=== PATIENT | male | born 1950 | race Caucasian/White ===

== ENCOUNTER 2023-12-26 06:57 | Observation (INO) ==
--- NOTE | 2023-11-22 11:45 | PAT Medication Instructions ---
Medication Instructions Date of Service November 22, 2023 Home Medications acetaminophen 650 mg tablet,extended release 650 mg PO Q8H PRN atorvastatin 40 mg tablet 40 mg PO PM levothyroxine 150 mcg tablet 150 mcg PO QAM Take morning of surgery With a small sip of water, OTHERWISE NOTHING TO EAT OR DRINK AFTER MIDNIGHT: acetaminophen 650 mg tablet,extended release 650 mg PO Q8H PRN(if needed) levothyroxine 150 mcg tablet 150 mcg PO QAM Take evening before surgery acetaminophen 650 mg tablet,extended release 650 mg PO Q8H PRN(if needed) atorvastatin 40 mg tablet 40 mg PO PM Other Notes If you have any questions please call us at [phone] or [phone] or [phone] or [phone]
--- NOTE | 2023-11-26 13:13 | Anesthesiology Consultation ---
Date of Service November 26, 2023 Assessment & Plan (1) Encounter for pre-operative examination: Plan - will request copy of upcoming echocardiogram from [facility]. - cardiology office visit 12/13/22: "...abnormal echo from 03/02/21 showed moderate RV dilation and hypokinesis. Repeat echo from 08/17/22 shows EF of 55- 60%, RV systolic function is normal. EKG shows sinus rhythm-will repeat echo in one year..." - facial hair: patient was instructed to trim/shave facial hair. Chart Review Chart Review: Pending: Refer to Additional Notes / Consult section and Patient seen in Pre Admission Testing Teaching & Discussion Pre-Anesthesia Teaching/Discussion Notes: Instructed NPO after midnight before surgery, except medications with 15 cc of water. Medication instructions provided according to the PAT guidelines. History Surgery Operation Date: 12/26/23 08:10 Proposed Procedures p Left Total Knee Arthroplasty - Bassem Bernal DO Height/Weight Height: 6 ft Weight: 100.2 kg Allergies Allergy/AdvReac Type Severity Reaction Status Date / Time No Known Allergies Allergy Unverified 11/22/23 09:07 Medications Home Medications Medication Instructions Recorded Confirmed Last Taken acetaminophen 650 mg 650 mg PO Q8H PRN prn 11/22/23 11/22/23 Unknown tablet,extended release atorvastatin 40 mg tablet 40 mg PO PM 11/22/23 11/22/23 Unknown levothyroxine 150 mcg tablet 150 mcg PO QAM 11/22/23 11/22/23 Unknown Past Medical History Medical History (Updated 11/26/23 @ 13:27 by Janeen Ardon PA-C) Dyspnea on exertion occasionally with flights of stairs, having ECHO 12/06/2023, [facility] History of COVID-19 07/2022, mild symptoms, denies hospitalization, resolved History of TIA (transient ischemic attack) 10 yrs ago-temporary vision loss-denies additional episodes Hyperlipidemia Hypothyroidism Sleep apnea not using his device Patient denies h/o seizures, heart attack, heart failure, DM, HTN, blood clots/DVTs or blood transfusions. Exercise / Class Metabolic Activity II 4-5 Yardwork/Stairs/Walk up hill (SOB with 1 FOS-chronic for several yrs, denies change or worsening; denies chest discomfort) Past Surgical History Surgical History Hx of hernia repair x 3, last one was in the 90s, umbilical and inguinal Hx of tooth extraction Past Anesthesia History No Hx of Anesthesia Complications and No Family Hx of Anesthesia Complications History of PONV No Hx of PONV and No Hx of Motion Sickness Social History Smoking Status: Never smoker Do You Dip or Chew Tobacco: No Hx Alcohol Use: Yes Alcohol type: beer alcohol intake frequency: 3 or more drinks per day (1 30 case per week; denies withdrawal, DTs or seizures) Hx Substance Use: No substance use type: does not use Review of Systems Patient denies chest pain, reflux, fever, chills, cough, wheezing, or palpitations. Physical Exam Vital Signs Vitals BP 131/88 P 54 TEMP 97.6 SP02 97% on RA RESP 18 Physical Patient resting comfortably in chair in no acute distress, alert and oriented, responding appropriately throughout visit Full cervical extension range of motion without pain TMD 3.5 finger breadths Mallampati Score 2 Dentition: chipped front tooth; denies loose teeth, caps/crowns, implants or bridges Lungs: normal respiratory effort. Good air movement, clear throughout to auscultation, no adventitious breath sounds Cardiac: regular rate and rhythm, no murmurs noted Carotid arteries: negative bruit bilat Lab Results Anesthesia Preop Results Results Anesthesia Widget: WBC 7.04 K/ul (4.8-10.8) 11/26/23 Hgb 15.7 g/dl (14.0-18.0) 11/26/23 Hct 45.3 % (42.0-52.0) 11/26/23 Plt 192 K/uL (130-400) 11/26/23 Na 138 mmol/L (136-145) 11/26/23 K 4.1 mmol/L (3.5-5.1) 11/26/23 Cl 108 mmol/L (98-107) H 11/26/23 CO2 24 mmol/L (21-32) 11/26/23 BUN 17 mg/dl (6-23) 11/26/23 Creat 1.03 mg/dl (0.6-1.4) 11/26/23 Glucose Level 110 mg/dl (70-99(Fasting)) H 11/26/23 PT 10.8 Seconds (9.0-12.0) 11/26/23 PTT 26 Seconds (21-31) 11/26/23 INR 1.0 (0.9-1.1) 11/26/23 HA1c 5.5 % (4.5-5.6) 11/26/23 Blood Type A Positive 11/26/23 Antibody Screen NEGATIVE 11/26/23 Testing Electrocardiogram Date: 11/26/23 Sinus bradycardia with 1st degree AV block, rate 50 bpm
--- NOTE | 2023-12-07 10:59 | History & Physical Report ---
Date of Service December 07, 2023 date of surgery: 12/26/23 Procedure: Left Total Knee Arthroplasty Surgeon: Bassem Bernal, DO Assessment & Plan (1) Arthritis of knee, left: Plan: Risk and benefits of this procedure were discussed, he would like to proceed wi th left total knee arthroplasty. Will plan on discharge home with home health physical therapy, we will place him on aspirin 81 mg twice a day for 1 month postop DVT prophylaxis. He otherwise has no other questions or concerns follow- up in the office 2 weeks after surgery The risks and benefits have been discussed including, but not limited to, risk of infection, nerve injury, stiffness, loss of motion, failure to improve, etc. Reasonable outcomes and options of treatment were discussed. An explanation of appropriate alternatives to the procedure that may be advantageous were discussed and their risks and benefits, as well as the risks and benefits of not proceeding with treatment. I offered to answer any additional inquiries concerning the treatment involved. All the patient's questions were answered. The patient is agreeable, understanding of the treatment plan and alternatives, and wishes to proceed with the treatment plan. Please note the above document was generated using voice recognition software. It may contain grammatical, syntax or spelling errors. Any formal questions or concerns about the content, text or information contained within the body of this dictation should be directly addressed to the provider for clarification History of Present Illness Chief Complaint: left knee pain Primary Care Provider: Bassem Baez Drew is a 73-year-old male who presented for preop evaluation prior to upcoming left total knee arthroplasty. He has a longstanding history of left knee pain which gradually worsened and is now affecting his daily activities. Has complaints of pain decreased range of motion and intermittent swelling. He has undergone previous cortisone injection as well as viscosupplementation with no improvement. He has tried oral anti-inflammatories and Tylenol as well. This point time is failed conservative measures and wished to proceed with a left total knee replacement Allergies Allergy/AdvReac Type Severity Reaction Status Date / Time No Known Allergies Allergy Unverified 11/22/23 09:07 Home Medications Medication Instructions Recorded Confirmed Type acetaminophen 650 mg 650 mg PO Q8H PRN prn 11/22/23 11/22/23 History tablet,extended release atorvastatin 40 mg tablet 40 mg PO PM 02/01/24 02/01/24 History levothyroxine 150 mcg tablet 150 mcg PO QAM 11/22/23 11/22/23 History Past Med/Surg History Medical History History of TIA (transient ischemic attack) 10 yrs ago-temporary vision loss-denies additional episodes Dyspnea on exertion occasionally with flights of stairs, having ECHO 12/06/2023, [facility] [place] Hypothyroidism Hyperlipidemia History of COVID-19 07/2022, mild symptoms, denies hospitalization, resolved Sleep apnea not using his device Surgical History Hx of tooth extraction Hx of hernia repair x 3, last one was in the 90s, umbilical and inguinal Social History Smoking Status: Never smoker Second Hand Exposure: No; Do You Dip or Chew Tobacco: No; Hx Alcohol Use: Yes Alcohol type: beer Hx Substance Use: No Preferred Language: [place] Certified Scrum Master Required: No Beliefs That Will Affect Care: None Current Living Situation: Spouse Feels Safe at Home: Yes Assistive Devices: Glasses Review of Systems Review of Systems: All systems reviewed & are unremarkable except as noted in HPI & below Constitutional: no fever, no chills and no sweats Respiratory: no cough and no dyspnea Cardiovascular: no chest pain, no dyspnea and no orthopnea Gastrointestinal: no abdominal pain, no nausea and no vomiting Musculoskeletal: as per Subjective / HPI Physical Exam Physical Exam: HT: 6ft WT: 100kg Constitutional: WD/WN, vitals as above no acute distress Respiratory: normal respiratory effort, lungs clear to auscultation no respiratory distress, no labored breathing and does not use accessory muscles Cardiovascular: RRR, no murmur, no edema Gastrointestinal (Abdomen): normal bowel sounds, soft, nontender, no hepatosplenomegaly Musculoskeletal: Knee: + knee abnormal to inspection (LEFT KNEE: ), + effusion (+1 effusion), + limited ROM of knee (ROM 0/3/110), + knee ROM with crepitation, + joint line tenderness (medial joint line) and + Wenceslao's sign positive; no deformity, no skin erythema, no ecchymosis, no valgus laxity, no varus laxity, anterior drawer test negative, Abril's sign negative and pivot shift test negative Results & Data Results & Data Diagnostic Findings Left Knee X-ray: left knee series confirm advanced degenerative changes to the left knee, greatest medial compartments and patellofemoral joint, showing joint space narrowing, osteophyte formation and subchondral sclerosis. no acute bony pathology noted.
[2023-12-26] MEDS ORDERED: BUPIVACAINE 0.25% PF 30 ML VIAL ONE (07:22)
[2023-12-26] MEDS ORDERED: BUPIVACAINE 0.5 % 5 MG/1 ML PF 10ML VIAL ONE (07:22)
[2023-12-26] MEDS: LR 500ML BOLUS, THEN 15ML/HR IV SCH (07:43)
[2023-12-26] MEDS: LR 60ML/HR IV SCH (07:44)
[2023-12-26] MEDS: ACETAMINOPHEN 500 MG TAB PO SCH ×2 (07:44→14:22)
[2023-12-26] MEDS: FAMOTIDINE 20 MG TAB PO SCH (07:45)
[2023-12-26] MEDS: GABAPENTIN 300 MG CAP PO SCH (07:45)
[2023-12-26] MEDS: CeleBREX 200 MG CAP PO SCH (07:45)
[2023-12-26] MEDS: dexAMETHasone**PF** 10 MG/ML VIAL IV SCH (07:45)
[2023-12-26] MEDS ORDERED: MIDAZOLAM HCL 1 MG/ML 2ML VIAL ONE (07:49)
--- NOTE | 2023-12-26 08:32 | History & Physical Bridge Note ---
Date of Service December 26, 2023 History & Physical Bridge Note I have examined the patient, reviewed the History & Physical and in the interval since the performance of the History & Physical I have noted the following changes of clinical significance: no changes noted
[2023-12-26] MEDS ORDERED: ONDANSETRON INJ 2 MG/ML 2 ML VIAL IV PRN ×2 (08:54→13:50)
[2023-12-26] MEDS ORDERED: ePHEDrine sulfate 50 MG/ML AMP IV PRN (08:54)
[2023-12-26] MEDS ORDERED: ATROPINE SULFATE 0.1 MG/ML 10ML SYR IV PRN (08:54)
[2023-12-26] MEDS ORDERED: fentaNYL citrate PF 100 MCG/2 ML VIAL IV PRN (08:54)
[2023-12-26] MEDS ORDERED: PROPOFOL IV EMULSION 10 MG/ML 20 ML VIAL IV ONE ×2 (09:14→10:55)
[2023-12-26] MEDS: TRANEXAMIC ACID / 0.7% NACL 1,000 MG/100 ML BAG IV ONE (09:43)
[2023-12-26] MEDS: ceFAZolin 2000MG 2,000 MG/15 ML SYR IV SCH ×2 (09:48→17:53)
--- NOTE | 2023-12-26 10:59 | Operative Report ---
Post Operative Report Pre & Post Diagnosis Operation Date: 12/26/23 09:00 Pre-Op Diagnosis: Left Knee Osteoarthritis Post-Op Diagnosis: Left Knee Osteoarthritis I identified the patient and participated in the time-out.: Yes Procedure Operation Date: 12/26/23 09:00 Actual Procedures p Left Total Knee Arthroplasty(Left)Utilizing [employer] journey 2 patient- matched total knee arthroplasty size femur 7 tibia 6 poly 11 patella 35 luna - Bassem Bernal DO Surgeon Bassem Bernal DO Fruit Receiver Raymond MELLO Estimated Blood Loss 5 Findings Consistent with Post-Op Diagnosis Patient presents with severe end-stage tricompartmental DJD failed attempted conservative management occluding physical therapy anti-inflammatories patient noted to have eburnated varus [id number] marginal osteophytes subchondral sclerosis subchondral cystic changes with a moderate to large effusion Specimens Bone and cartilage Drains Medium bore Hemovac Anesthesia Type MAC Spinal Regional Complications none Disposition Accompanied Patient To Recovery: No Disposition: Recovery Room Indications Patient presents with severe end-stage tricompartmental degenerative joint disease failing attempted conservative management occluding physical therapy anti-inflammatories relative rest activity modification corticosteroid injection viscosupplementation the above intraoperative findings were noted Description of Procedure After proper prepping and draping of the left lower extremity anterior midline incision was made over the region of the extensor extensor mechanism after meticulous hemostasis was obtained and maintained in subcutaneous tissues a medial parapatellar incision was made The patella was subluxed lateralward the medial lateral gutter were cleaned from any hypertrophic synovitis and scar tissue of the distal femoral block was placed and the distal femoral osteotomy cut was made subsequently the chamfers anterior and posterior osteotomy cuts were made utilizing the 4-in-1 block the tibia was subsequently subluxed anteriorward medial and ateral meniscal remnants were excised in their entirety remnants of the anterior and posterior cruciate ligaments were excised in their entirety excellent exposure of the proximal tibia was obtained the tibial osteotomy guide was placed on the proximal tibial osteotomy cut was made once again the knee was irrigated with copious amounts of sterile saline solution the patella was subsequently everted lateralward thickened scar tissue around the patella was removed the patella was subsequently cut utilizing a freehand technique and was drilled prepared for final preparation and placement of patella socially flexion-extension gaps were checked and the equal and symmetric trials were placed to the appropriate femoral and tibial trials with poly-spacer being placed for equal flexion and extension gaps and full range of motion including extension to 0 and flexion to 140 the trial components after having been taken to recovery range of motion was subsequently removed meticulous hemostasis was obtained and maintained subsequently a knee block injection of joint cocktail including ropivacaine 0.5% 150 mg. Bupivacaine 0.5% epinephrine 1-200,030 mL's toradol 30 mg dexamethasone 4 mg ketamine 10 mg clonidine 100 micrograms normal saline solution 30 mg was infiltrated into the soft tissues of the posterior knee medial lateral gutters and periosteal synovium special attention was paid to protect neurovascular structures at all times subsequently trial components having been removed the knee was irrigated with sterile saline solution. debris was removed the proximal tibia was subsequently prepared and was made ready for the placement of the tibial component tibial component was also cemented and tamped into position the femoral component was subsequently placed and cemented in the position the patellar component was subsequently cemented in position because hemostasis once again obtained and maintained wound having been thoroughly irrigated with debridement and debridement lavage was performed as well as a medial parapatellar incision closed with #1 Vicryl in interrupted fashion subcutaneous was closed with #2 Vicryl skin was closed with skin clips. PA-C was necessary for prepping and drapping as well as wound closure of deep fascia Sub cutaneous tissue and skin and was necessary for the case. A sterile compressive dressing was placed patient was taken to recovery in stable condition of report dictated by Gabe I attest to the content of the Intraoperative Record and any orders documented therein. Any exceptions are noted below.Due to the complex nature of the procedure, the entire surgery was performed with the operational assistance ofUFNMILAYO Perkins. The mri assistant, under direct supervision, was involved in the actual performance of all aspects of the surgical procedure including hemostasis , tissue retraction and incision, instrument management, patient positioning, and wound closure. I attest to the content of the Intraoperative Record and any orders documented therein. Any exceptions are noted below.
[2023-12-26] MEDS: TRANEXAMIC ACID / 0.7% NACL 1000MG/100ML BAG IV ONE (11:00)
[2023-12-26] MEDS: ROPIV 0.5% 246mg, Ketorolac 30mg, EPINEPHrine 0.5mg in NSS INFIL SCH (11:05)
[2023-12-26] MEDS: ORTHO JOINT ANESTHETIC ONE (11:06)
--- NOTE | 2023-12-26 11:58 | XRay Report ---
XR knee LT 1 or 2V routine HISTORY: 73 years-old Male Surgical Post Op left knee arthroplasty COMPARISON: None TECHNIQUE: 2 views of left knee FINDINGS: Total joint arthroplasty with patellar resurfacing. Surgical drainage catheter is in place. Expected postoperative soft tissue swelling with deep tissue air. No acute fracture, alignment or unexpected o paque foreign body. IMPRESSION: Total joint arthroplasty and patellar resurfacing with expected postoperative changes. ACT 112: Negative or not required by law. The above report was generated using voice recognition software. It may contain grammatical, syntax o r spelling errors. Electronically signed by: Alan Law M.D. 12/26/2023 11:57 AM
--- NOTE | 2023-12-26 13:36 | Anesthesiology Progress Note ---
Date of Service December 26, 2023 Anesthesia Post Procedure Vital Signs Vital Signs: Temp Pulse Resp BP Pulse Ox O2 Del Method O2 Flow Rate 12/26/23 13:25 36.5 C 60 14 110/68 93 Room Air 12/26/23 13:15 52 L 12 119/68 95 Room Air 12/26/23 13:05 57 L 17 117/73 94 Room Air 12/26/23 12:55 63 18 134/69 94 Room Air 12/26/23 12:45 52 L 13 100/68 94 Room Air 12/26/23 12:35 51 L 12 104/65 93 Room Air 0 12/26/23 12:25 51 L 12 102/68 93 Room Air 0 12/26/23 12:15 47 L 12 110/62 94 Room Air 0 12/26/23 12:05 52 L 14 116/68 94 Room Air 0 12/26/23 11:55 52 L 12 109/62 97 Oxymask 2 12/26/23 11:45 49 L 20 113/65 96 Oxymask 6 12/26/23 11:34 36.8 C 54 L 19 98/63 L 96 Oxymask 6 12/26/23 07:25 36.5 C 48 L 18 140/86 97 Room Air Transfer of Care Handoff Completed per policy Notes Mental Status: alert / awake / arousable and participated in evaluation Patient Amnestic to Procedure: Yes Nausea / Vomiting: adequately controlled Pain: adequately controlled Airway Patency, RR, SpO2: stable & adequate BP & HR: stable & adequate Hydration State: stable & adequate Neuraxial Anesthesia: was administered and sensory block is resolving Anesthetic Complications: no major complications apparent and Pt Satisfied with anesthetic care
[2023-12-26] MEDS ORDERED: METOCLOPRAMIDE HCL INJ 5 MG/ML 2 ML VIAL IV PRN (13:50)
[2023-12-26] MEDS ORDERED: NALOXONE HCL 0.4 MG/1 ML VIAL/CARP IV PRN (13:50)
[2023-12-26] MEDS ORDERED: diphenhydrAMINE Capsule 25 MG CAP PO PRN (13:50)
[2023-12-26] MEDS ORDERED: bisacodyL 10 MG SUPP PR PRN (13:50)
[2023-12-26] MEDS ORDERED: MAGNESIUM HYDROXIDE SUSP 30 ML UDC PO PRN (13:50)
[2023-12-26] MEDS ORDERED: HYDROmorphone INJ 1 MG/ML SYRINGE IV PRN (13:50)
[2023-12-26] MEDS: KETOROLAC TROMETHAMINE 15 MG/ML VIAL IV SCH (14:24)
[2023-12-26] MEDS: SODIUM CHLORIDE 0.9% 1,000 ML IV SCH (14:24)
[2023-12-26] MEDS: oxyCODONE HCL IR 5 MG TAB (IMMEDIATE RELEASE) PO PRN (19:41)
[2023-12-26] MEDS: SENNA 8.6 MG TAB PO SCH (20:26)
[2023-12-26] MEDS: DOCUSATE SODIUM 100 MG CAP PO SCH (20:26)
[2023-12-26] MEDS: ATORVASTATIN 40 MG TAB PO SCH (20:26)
[2023-12-26] MEDS: ASPIRIN 81 MG ECTAB PO SCH (20:26)
[2023-12-27] MEDS: LEVOTHYROXINE SODIUM 150 MCG TABLET PO SCH (05:14)
[2023-12-27 06:13] LABS: Hematocrit (blood only) 37.2 % (42.0-52.0); Hemoglobin 12.9 g/dl (14.0-18.0); Mean Corpuscular Hemoglobin 31.8 pg (25.0-34.0); Mean Corpuscular Hgb Conc 34.7 g/dL (32.0-36.0); Mean Corpuscular Volume 91.6 fL (80.0-100.0); Mean Platelet Volume 9.8 fL (9.4-12.4); Platelet Count 157 K/uL (130-400); RDW Coefficient of Variation 12.7 % (11.5-14.5); Red Blood Count 4.06 M/uL (4.70-6.10); White Blood Count 12.51 K/ul (4.8-10.8)
[2023-12-27 06:36] LABS: BUN Creatinine Ratio 18.7 (10-20); Calcium 8.2 mg/dl (8.6-10.3); Creatinine Clr Calc Pharmacy 76.4 ml/min; Potassium 4.1 mmol/L (3.5-5.1)
--- NOTE | 2023-12-27 06:49 | Orthopedic Progress Note ---
Date of Service December 27, 2023 Assessment & Plan (1) History of total left knee replacement: Plan: POD #1 s/p Left TKA pt/ot dvt proph with DAWSON/SCD/ASA plan for d/c home with HHPT Admission and Anticipated Discharge Date Admission Date: December 26, 2023 Subjective POD #1 s/p Left TKA Review of Systems Constitutional: no fever, no chills and no sweats Respiratory: no cough and no dyspnea Cardiovascular: no chest pain and no dyspnea Gastrointestinal: no abdominal pain, no nausea and no vomiting Physical Exam Physical Exam: Vital Signs Temp 36.4 C L 12/27/23 02:42 Pulse 50 L 12/27/23 02:42 Resp 16 12/27/23 02:42 BP 120/74 12/27/23 02:42 Pulse Ox 94 12/27/23 02:42 O2 Del Method Room Air 12/27/23 02:42 O2 Flow Rate 0 12/26/23 12:45 Intake & Output 12/26/23 12/26/23 12/27/23 06:59 18:59 06:59 Intake Total 1300 / 3453.333 2153.333 / 3453.33 3 Output Total 735 / 1375 640 / 1375 Balance 565 / 2078.333 1513.333 / 2078.33 3 Weight 99.9 kg Intake: IV 100 / 9617.732 4449.333 / 1653.33 3 Lactated Ringe r's 1,000 ml @ 15 0 / 0 mls/hr IV .Q24 H FRANCISCA Rx#: [id number] Sodium Chlorid e 0.9% 1,000 ml @ 1553.333 / 1553.33 3 100 mls/hr IV .Q10H FRANCISCA Rx#: [id number] Tranexamic Aci d / 0.7% NaCl 1, 100 / 100 000 mg In 100 ml @ 600 mls/hr IV PREOP ONE R x#:[id number] IV Perioperative 1200 / 1200 Oral 600 / 600 Output: Urine 700 / 1300 600 / 1300 Estimated Blood Loss 5 / 5 Drain Output 40 / 70 Left Knee Hemo vac #1 40 / 70 Other: Weight Measureme nt Method Standing Scale Musculoskeletal: Left Leg: NVDI, calf SNT, negative yazmin sign. DP palpable, able to wiggle toes/ankle movement without difficulty. dressing clean dry and intact. Results & Data Vital Signs (Past 12 Hours) Vital Signs Temp Pulse Resp BP Pulse Ox O2 Del Method 12/27/23 02:42 36.4 C L 50 L 16 120/74 94 Room Air 12/26/23 22:22 36.7 C 52 L 16 106/61 93 Room Air 12/26/23 19:12 36.8 C 57 L 16 115/65 93 Room Air Laboratory Results Laboratory Results WBC 12.51 K/ul (4.8-10.8) H 12/27/23 05:54 RBC 4.06 M/uL (4.70-6.10) L 12/27/23 05:54 Hgb 12.9 g/dl (14.0-18.0) L 12/27/23 05:54 Hct 37.2 % (42.0-52.0) L 12/27/23 05:54 MCV 91.6 fL (80.0-100.0) 12/27/23 05:54 MCH 31.8 pg (25.0-34.0) 12/27/23 05:54 MCHC 34.7 g/dL (32.0-36.0) 12/27/23 05:54 RDW Std Deviation 43.0 fL (36.4-46.3) 12/27/23 05:54 RDW Coeff of Gee 12.7 % (11.5-14.5) 12/27/23 05:54 Plt Count 157 K/uL (130-400) 12/27/23 05:54 MPV 9.8 fL (9.4-12.4) 12/27/23 05:54 Sodium 137 mmol/L (136-145) 12/27/23 05:54 Potassium 4.1 mmol/L (3.5-5.1) 12/27/23 05:54 Chloride 107 mmol/L (98-107) 12/27/23 05:54 Carbon Dioxide 23 mmol/L (21-32) 12/27/23 05:54 Anion Gap 7 (3-11) 12/27/23 05:54 BUN 20 mg/dl (6-23) 12/27/23 05:54 Creatinine 1.07 mg/dl (0.6-1.4) 12/27/23 05:54 Est Cr Clr Drug Dosing 76.4 ml/min 12/27/23 05:54 Est GFR ( Amer) 80.0 ml/min 12/27/23 05:54 Est GFR (Non-Af Amer) 69.0 ml/min 12/27/23 05:54 BUN/Creatinine Ratio 18.7 (10-20) 12/27/23 05:54 Glucose 121 mg/dl (70-99(Fasting)) H 12/27/23 05:54 Calcium 8.2 mg/dl (8.6-10.3) L 12/27/23 05:54 Impressions Knee X-Ray 12/26/23 10:18 XR knee LT 1 or 2V routine HISTORY: 73 years-old Male Surgical Post Op left knee arthroplasty COMPARISON: None TECHNIQUE: 2 views of left knee FINDINGS: Total joint arthroplasty with patellar resurfacing. Surgical drainage catheter is in place. Expected postoperative soft tissue swelling with deep tissue air. No acute fracture, alignment or unexpected opaque foreign body. IMPRESSION: Total joint arthroplasty and patellar resurfacing with expected postoperative changes. ACT 112: Negative or not required by law. The above report was generated using voice recognition software. It may contain grammatical, syntax or spelling errors. Electronically signed by: Alan Law M.D. 12/26/2023 11:57 AM
--- NOTE | 2023-12-27 07:05 | Discharge Summary ---
Date of Service date of discharge: December 27, 2023 date of admission: 12/26/23 Admission HPI Per Admitting Provider Drew is a 73-year-old male who presented for preop evaluation prior to upcoming left total knee arthroplasty. He has a longstanding history of left knee pain which gradually worsened and is now affecting his daily activities. Has complaints of pain decreased range of motion and intermittent swelling. He has undergone previous cortisone injection as well as viscosupplementation with no improvement. He has tried oral anti-inflammatories and Tylenol as well. This point time is failed conservative measures and wished to proceed with a left total knee replacement Principal Diagnosis left knee osteoarthritis Discharge Exam Vital Signs Temp 36.4 C L 12/27/23 02:42 Pulse 50 L 12/27/23 02:42 Resp 16 12/27/23 02:42 BP 120/74 12/27/23 02:42 Pulse Ox 94 12/27/23 02:42 O2 Del Method Room Air 12/27/23 02:42 O2 Flow Rate 0 12/26/23 12:45 Intake & Output 12/26/23 12/26/23 12/27/23 06:59 18:59 06:59 Intake Total 1300 / 3453.333 2153.333 / 3453.333 Output Total 735 / 1375 640 / 1375 Balance 565 / 2078.333 1513.333 / 2078.333 Weight 99.9 kg Intake: IV 100 / 5708.084 7106.333 / 1653.333 Lactated Ringer's 1,000 ml @ 15 0 / 0 mls/hr IV .Q24H FRANCISCA Rx#: [id number] Sodium Chloride 0.9% 1,000 ml @ 1553.333 / 1553.333 100 mls/hr IV .Q10H FRANCISCA Rx#: [id number] Tranexamic Acid / 0.7% NaCl 1, 100 / 100 000 mg In 100 ml @ 600 mls/hr IV PREOP ONE Rx#:[id number] IV Perioperative 1200 / 1200 Oral 600 / 600 Output: Urine 700 / 1300 600 / 1300 Estimated Blood Loss 5 / 5 Drain Output 30 / 70 40 / 70 Left Knee Hemovac #1 30 40 / 70 Other: Weight Measurement Method Standing Scale Constitutional WD/WN, vitals as above no acute distress Musculoskeletal left knee: NVDI, calf SNT, negative yazmin sign. DP palpable, able to wiggle toes/ankle movement without difficulty. dressing clean dry and intact. Discharge Data Allergies Allergy/AdvReac Type Severity Reaction Status Date / Time No Known Allergies Allergy Verified 12/26/23 07:22 Procedures Performed Operation Date: 12/26/23 09:00 Actual Procedures p Left Total Knee Arthroplasty(Left) - Bassem Sewell DO Ordered Studies 12/26/23 05:00 US - OR guided needle placemen Routine Hospital Course (1) History of total left knee replacement: POD #1 s/p Left TKA pt/ot dvt proph with DAWSON/SCD/ASA plan for d/c home with HHPT Total Time Total Time Spent Total Time Spent (In Minutes): 20 Discharge Plan Discharge Items Patient Disposition: Home - Home Health Services Reason For Visit: Left Knee Osteoarthritis Discharge Diagnosis: left total knee replacement Activity: Per Instructions section Lifting: Wait until after follow-up appointment Weightbearing Comment: WBAT with walker Non-emergency contact: Surgeon Call non-emergency contact if: you have any medication questions, your temperature is above 101, your wound has increased redness, your wound has increased drainage and your wound pain has increased Follow-up/Referrals: Bassem Baez M.D. [Primary Care Provider] - Diet: Regular Addtl Attending Provider Instructions: ACTIVITY RECOMMENDATIONS: SELF CARE INSTRUCTIONS AFTER TOTAL KNEE REPLACEMENT A. You may need to continue a physical therapy program after discharge from the hospital. There are several options available to you. Your doctor will assist you in selecting the best one for you. 1. An out-patient facility 2 to 3 times a week for therapy or home therapy. 2. Continue working on all exercises taught to you in the hospital. Your goals should be to increase bending of your knee to 90 degrees and beyond and to fully straighten your knee. B. You may progress at your own pace from walking with a walker or crutches to a cane; then to no assistive devices. C. Make walking a part of your daily routine. Be up as much as comfortable with rest periods throughout the day. Rest with leg elevation is very important. Use the ice wrap frequently for the first 3-4 weeks. D. There are no restrictions on activities. You may ride in a car, shop, participate in dental scheduling coordinator and all social activities. E. Wear the long elastic stockings (DAWSON hose) 20 hours a day for 2 weeks after surgery. They can be removed several times a day for laundering and for a bath. F. You may shower, no tub baths until cleared by your doctor. SPECIAL CARE INSTRUCTIONS: VERY IMPORTANT TO READ AND REVIEW A. There are a few signs you need to watch for after you are home. Call [facility] if you notice any of the followin. Increased severe knee pain. Some pain is expected especially when you exercise. 2. Increased swelling in your leg or knee; pain or swelling of the calf muscle in either lower leg. 3. Any fluid drainage from the incision. 4. Shortness of breath or chest pain. B. Please call [facility] at if you have any concerns or questions about your operation or recovery. The doctor or his nurse will return your call promptly. C. You must take antibiotics before dental work, bladder, bowel or other surgery. Your doctor will provide you with a permanent care to carry describing this precaution. IMPORTANT: * REMEMBER TO TAKE ASPIRIN, 81 MG, TWICE DAILY FOR 4 WEEKS UNLESS OTHERWISE DIRECTED. THIS IS YOUR BLOOD THINNER. * HIGH RISK PATIENTS MAY BE PRESCRIBED A STRONGER BLOOD THINNER. THIS WILL BE PROVIDED AT DISCHARGE. * CALL IF INCREASED PAIN, REDNESS, DRAINAGE OR FEVER GREATER THAT 101. * WEAR DAWSON HOSE 20 HOURS PER DAY FOR 2 WEEKS. DRESSING INSTRUCTIONS * LAKSHMI Dressing- This is a large suction dressing covering your incision. This will help pull any excess drainage from the wound and allow your incision to heal properly. You may shower with this if you can keep the unit outside of the shower. If any bleeding or leakage is noted please call your doctor's office. This will remain on your incision for 7 days and then should be removed. This can be done yourself or by the home nursing staff if applicable. The entire unit is disposable once removed. Once removed, keep incision clean and dry. If redness or drainage is noted, please call your surgeon. ONCE LAKSHMI IS REMOVED, FOLLOW THESE INSTRUCTIONS: DERMABOND Prineo- This is a mesh tape dressing that is covered with glue. It should remain in place until the incision is properly healed, usually 10-14 days. This dressing is designed to naturally slough off. You may trim the excess mesh tape as it peels off. Incision may be briefly wet in a shower. Dry immediately by blotting with a clean, dry towel. Do not bath or swim until instructed by your doctor. Do not scratch, rub, or pick at the dressing. Do not apply any topical ointments or lotions until dressing is completely removed and/or instructed by your doctor. There may be a small piece of suture material at one end of your incision. Do not pull or trim this. If it is bothersome or catching on clothing, you may cover it with a band-aid. IF INCISION IS LEAKING THROUGH DRESSING, CALL THE OFFICE . FOLLOW UP VISIT: If appointment is not already scheduled: Please call [facility] to make a follow-up appointment for 2 weeks after your surgery at . Pending Studies at Discharge: No Stand-Alone Forms: My [facility] Medications and DC Order Prescriptions: New acetaminophen 500 mg tablet 1,000 mg PO Q8 21 Days Qty: 126 0RF aspirin 81 mg tablet,delayed release (DR/EC) 81 mg PO BID 30 Days Qty: 60 0RF celecoxib [Celebrex] 200 mg capsule 200 mg PO BID 30 Days Qty: 60 0RF cefadroxil 500 mg capsule 500 mg PO BID 14 Days Qty: 28 0RF docusate sodium 100 mg Capsule 100 mg PO BID Qty: 20 0RF oxycodone 5 mg tablet 5 - 10 mg PO Q6H PRN (Reason: pain) Qty: 30 0RF Rx Instructions: ongoing therapy, supervising dr shanti sewell. max 6 tabs in 24 hours. date of surgery 12/26/23 Continued atorvastatin 40 mg Tablet 40 mg PO PM levothyroxine 150 mcg Tablet 150 mcg PO QAM Discontinued acetaminophen [Tylenol Arthritis] 650 mg Tablet Extended Release 650 mg PO Q8H PRN (Reason: prn) Admission Data Admit Date/Time: 12/26/23 10:18 Attending Provider: Bassem Sewell Admit Provider: Bassem Sewell Primary Care Provider: Bassem Baez
[2023-12-27] MEDS: MULTIVITAMIN TAB PO SCH (07:55)
[2023-12-27] MEDS ORDERED: CeleBREX 200 MG CAP PO SCH (21:00)
== END 2023-12-27 10:46 | disposition home health service (06) ==
LOC: EDBD → ASU 06:57 → 3E 06:57